=== PATIENT | female | born 1945 | race Caucasian/White ===

== ENCOUNTER 2024-10-14 14:47 | Emergency (ER) | payer OTHER ==
[2024-10-14 15:00] VITALS: BP 120/84; PULSE 78; RESP 16; TEMP 98.8; BMI 18.8
[2024-10-14] MEDS ORDERED: ACETAMINOPHEN 500 MG TABLET (FP) ONE (16:06)
[2024-10-14] MEDS: ACETAMINOPHEN 500 MG TABLET (FP) PO ONE (16:10)
== END 2024-10-14 19:20 | disposition home or self-care (01) ==
LOC: FER 14:47 → EDSEX 14:47 → FER 19:20
DX: M25.561 Pain in right knee (principal); R42 Dizziness and giddiness; W19.XXXA Unspecified fall, initial encounter
CPT/HCPCS: 73130-TC-RT-FY; 73560-TC-LT-FY; 73562-TC-RT-FY; 93005; 99284-25